=== PATIENT | female | born 1930 | race Caucasian/White ===

== ENCOUNTER 2016-12-01 17:44 | Outpatient (CLI) ==
[2016-12-01 22:08] VITALS: BMI 23.9
== END 2016-12-01 17:45 ==
LOC: AMBL 17:44
PROVIDERS: ATTEND Emergency Medicine
DX: S81.811A Laceration without foreign body, right lower leg, initial encounter (principal); S81.019A Laceration without foreign body, unspecified knee, initial encounter; S90.426A Blister (nonthermal), unspecified lesser toe(s), initial encounter; R53.1 Weakness; W19.XXXA Unspecified fall, initial encounter

== ENCOUNTER 2017-01-10 13:01 | Outpatient (CLI) | payer OTHER ==
[2017-01-10 13:25] LABS: ANION GAP 16.5; BUN/CREATININE RATIO 16.92; CALCIUM 9.4 mg/dL (8.2-10.2); CREATININE 2.6 mg/dL (0.60-1.30); POTASSIUM 4.5 mmol/L (3.5-5.10)
== END 2017-01-10 13:02 | disposition home or self-care (01) ==
LOC: NONPT 13:01
PROVIDERS: ATTEND Family Medicine
DX: I12.9 Hypertensive chronic kidney disease with stage 1 through stage 4 chronic kidney disease, or unspecified chronic kidney disease (principal); N18.9 Chronic kidney disease, unspecified
CPT/HCPCS: 80048

== ENCOUNTER 2017-01-18 18:09 | Outpatient (CLI) | END 2017-01-18 18:10 | LOC: AMBL 18:09 | PROVIDERS: ATTEND Emergency Medicine | DX: S51.812A Laceration without foreign body of left forearm, initial encounter (principal); S91.011A Laceration without foreign body, right ankle, initial encounter; R60.0 Localized edema; G62.9 Polyneuropathy, unspecified; R26.89 Other abnormalities of gait and mobility; W19.XXXA Unspecified fall, initial encounter ==

== ENCOUNTER 2017-01-18 19:33 | Outpatient (CLI) | END 2017-01-18 19:34 | LOC: AMBL 19:33 | PROVIDERS: ATTEND Internal Medicine Geriatric Medicine | DX: R26.9 Unspecified abnormalities of gait and mobility (principal); M79.605 Pain in left leg; R29.6 Repeated falls; W19.XXXA Unspecified fall, initial encounter ==

== ENCOUNTER 2017-01-18 19:48 | Inpatient (IN) ==
[2017-01-18] MEDS ORDERED: MORPHINE 2 MG/ML SYRINGE IM STA (20:15)
[2017-01-18] MEDS ORDERED: ZOFRAN 4 MG/2 ML IM STA (20:15)
--- NOTE | 2017-01-18 20:29 | ED.PDOC ---
General ED Provider: Dr. ROSALINA FLYNN Chief Complaint: Fall Stated Complaint: Patient is an 86 year old female who comes to the ER after having sustained fell this aftenoon while in the closet reaching for dasha rivas. Now unable to put weight on the left with slight rotation. Time Seen by Physician: 20:27 Mode of Arrival: Walk-In Information Source: Patient Exam Limitations: Dementia Primary Care Provider: NEVILLE RIVAS Nursing and Triage Documentation Reviewed and Agree: Yes Review of Systems - Review Of Systems Constitutional: Reports: No symptoms Eyes: Reports: No symptoms Ears, Nose, Mouth, Throat: Reports: No symptoms Respiratory: Reports: No symptoms Cardiac: Reports: No symptoms GI: Reports: No symptoms Musculoskeletal: Reports: Joint pain (Unable to bear weight on the left leg due to pain. 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" does not recall symptoms) Respiratory: Reports: None Hematological: Reports: None Gastrointestinal: Reports: None Genitourinary: Reports: CKD Neuro/Psych: Reports: None Musculoskeletal: Reports: Arthritis, Gout Cancer: Reports: None Last Menstrual Period: POST MENOPAUSAL Other Pertinent Past Medical History: htn kd dvt hyst cce - Surgical History General Surgical History: Reports: Hysterectomy, Cholecystectomy - Family History Family History: Reports: Unknown - Social History Smoking Status: Never smoker Hx Substance Use: No Alcohol Screening: Occasionally - Immunizations Tetanus Shot up to Date: No Physical Exam - Physical Exam Appearance: Ill-appearing Ill-appearing: Mild Pain Distress: Moderate Neck: Supple Respiratory: Airway patent, Breath sounds clear, Breath sounds equal, Respirations nonlabored Cardiovascular: RRR, Pulses normal, No rub, No murmur GI/: Soft, Nontender, No masses, Bowel sounds normal, No Organomegaly Musculoskeletal: Edema (Lower extremities ) Neurological: Oriented (x 2) Psychiatric: Anxious Interpretation - Radiology Interpretation Radiology Interpretation By: Radiologist Radiology Results: Positive Exam Interpreted: CT Scan (pubic ramus fracture minimally displaced) Radiology Interpretation By: ED Physician Radiology Results: Negative Exam Interpreted: Other (Left TIb fib ) Physician Notification - Case Discussed Physician Notified: Dr Avilez Time of Notification: 22:06 (Admit to Dr Rivas. ) Critical Care Note - Critical Care Note Total Time (mins): 0 Course - Course Hematology/Chemistry: 01/18/17 20:52 01/18/17 20:52 Orders, Labs, Meds: Lab Review 01/18/17 20:52 WBC 10.51 H RBC 3.11 L Hgb 9.8 L Hct 30.0 L MCV 96.5 MCH 31.5 H MCHC 32.7 RDW Coeff of Jasmin 13.7 Plt Count 215 Immature Gran % (Auto) 0.4 Neut % (Auto) 77.4 Lymph % (Auto) 13.0 [place] % (Auto) 7.1 Eos % (Auto) 1.4 Baso % (Auto) 0.7 Immature Gran # (Auto) 0.0 Neut # 8.1 H Lymph # 1.4 [place] # 0.8 Eos # 0.2 Baso # 0.1 Sodium 142 Potassium 4.2 Chloride 108 H Carbon Dioxide 24 Anion Gap 14.2 BUN 36 H Creatinine 2.13 H Estimated GFR (MDRD) 22.00 BUN/Creatinine Ratio 16.90 Glucose 140 H Calcium 10.5 H Total Bilirubin 0.57 AST 22 ALT 11 L Alkaline Phosphatase 235 H Total Protein 7.1 Albumin 3.4 Globulin 3.7 Albumin/Globulin Ratio 0.92 Orders Category Date Time Status ADMIT PATIENT INPATIENT .TO [facility] (NON-MONITORED ADMISSION 01/18/17 22: 09 Active BED) ACTIVITY .Early Mobilization for VTE Prevention CARE 01/18/17 22:11 Active CASE MANAGEMENT CONSULT ONCE CARE 01/18/17 22:09 Active INTAKE & OUTPUT Q8HR CARE 01/18/17 22:09 Active VITAL SIGNS Q4HR CARE 01/18/17 22:10 Active REGULAR DIET DIETARY 01/18/17 Breakfast Ordered CBC W/ AUTO DIFF Stat LAB 01/18/17 20:52 Completed COMPREHENSIVE METABOLIC PANEL Stat LAB 01/18/17 20:52 Completed Acetaminophen [Tylenol] MEDS 01/18/17 22:09 Ordered 650 mg PO Q4H PRN Allopurinol [Allopurinol] MEDS 01/19/17 09:00 Ordered 100 mg PO DAILY Bumetanide [Bumex] MEDS 01/19/17 09:00 Ordered 1 mg PO DAILY Carvedilol [Coreg] MEDS 01/19/17 09:00 Ordered 25 mg PO BID Colestipol HCl [Colestid] MEDS 01/19/17 09:00 Ordered 1 gm PO BID Diphenoxylate HCl/Atropine [Lomotil] MEDS 01/18/17 22:14 Ordered 1 tab PO DAILY PRN Diphth,Pertuss(Acell),Tet Vac [Boostrix] MEDS 01/18/17 22:05 Discontinued 0.5 ml IM .ONCE ONE Donepezil HCl [Aricept] MEDS 01/19/17 09:00 Ordered 10 mg PO DAILY Enoxaparin Sodium [Lovenox] MEDS 01/19/17 09:00 Ordered 30 mg SUBCUT DAILY Lisinopril [Lisinopril] MEDS 01/19/17 09:00 Ordered 20 mg PO DAILY Magnesium Oxide [Mag-Ox] MEDS 01/19/17 09:00 Ordered 400 mg PO DAILY Morphine Sulfate [Morphine 2 mg/ml Syringe] MEDS 01/18/17 20:15 Discontinued 2 mg IM ONCE STA Morphine Sulfate [Morphine 2 mg/ml Syringe] MEDS 01/18/17 22:09 Ordered 2 mg IVP Q4H PRN Ondansetron HCl/Pf [Zofran 4 mg/2 ml] MEDS 01/18/17 20:15 Discontinued 4 mg IM ONCE STA Ondansetron HCl/Pf [Zofran 4 mg/2 ml] MEDS 01/18/17 22:09 Ordered 4 mg IVP Q6H PRN Oxycodone-Acetaminophe 7.5-325 [Percocet 7.5-325] MEDS 01/18/17 22:14 Ordered 1 tab PO Q6HR PRN Spironolactone [Aldactone] MEDS 01/19/17 09:00 Ordered 25 mg PO DAILY RESUSCITATION STATUS Routine OTHERS 01/18/17 22:[address] PELVIS W/O CONTRAST Stat RADS 01/18/17 20:15 Completed TIBIA/FIBULA, LEFT 2 VIEWS Stat RADS 01/18/17 20:15 Taken OT CONSULTATION Routine THERAPIES 01/18/17 Ordered PT CONSULT Routine THERAPIES 01/18/17 Ordered Medications Generic Name Dose Route Start Last Admin Trade Name Freq PRN Reason Stop Dose Admin Acetaminophen 650 mg 01/18/17 22:09 Tylenol PO Q4H PRN Fever > 102 Bumetanide 1 mg 01/19/17 09:00 Bumex PO DAILY [facility] Colestipol HCl 1 gm 01/19/17 09:00 Colestid PO BID [facility] Diphenoxylate HCl/Atropine 1 tab 01/18/17 22:14 Lomotil PO DAILY PRN diarrhea Donepezil HCl 10 mg 01/19/17 09:00 Aricept PO DAILY [facility] Enoxaparin Sodium 30 mg 01/19/17 09:00 Lovenox SUBCUT DAILY [facility] Magnesium Oxide 400 mg 01/19/17 09:00 Mag-Ox PO DAILY [facility] Morphine Sulfate 2 mg 01/18/17 22:09 Morphine 2 Mg/Ml Syringe IVP Q4H PRN Severe Pain Non-Formulary Medication 100 mg 01/19/17 09:00 Allopurinol [Allopurinol] PO DAILY [facility] Non-Formulary Medication 25 mg 01/19/17 09:00 Carvedilol [Coreg] PO BID [facility] Non-Formulary Medication 20 mg 01/19/17 09:00 Lisinopril [Lisinopril] PO DAILY [facility] Ondansetron HCl 4 mg 01/18/17 22:09 Zofran 4 Mg/2 Ml IVP Q6H PRN Nausea / Vomiting Oxycodone/Acetaminophen 1 tab 01/18/17 22:14 Percocet 7.5-325 PO Q6HR PRN MODERATE PAIN Spironolactone 25 mg 01/19/17 09:00 Aldactone PO DAILY [facility] Discontinued Medications Generic Name Dose Route Start Last Admin Trade Name Freq PRN Reason Stop Dose Admin Diphtheria/Pertussis/Tetanus Vacc 0.5 ml 01/18/17 22:05 01/18/17 22:38 Boostrix IM 01/18/17 22:06 0.5 ml .ONCE ONE Administration Morphine Sulfate 2 mg 01/18/17 20:15 01/18/17 21:07 Morphine 2 Mg/Ml Syringe IM 01/18/17 20:16 2 mg ONCE STA Administration Ondansetron HCl 4 mg 01/18/17 20:15 01/18/17 21:05 Zofran 4 Mg/2 Ml IM 01/18/17 20:16 4 mg ONCE STA Administration Vital Signs: Temp Pulse Resp BP Pulse Ox 01/18/17 19:50 99.3 F 74 16 112/57 L 99 Departure - Departure Time of Disposition: 22:00 Disposition: ADMITTED INPATIENT Discharge Problem: Pelvic fracture Qualifiers: Encounter type: initial encounter Pelvic bone location: ilium Fracture type: closed Fracture morphology: unspecified fracture morphology Fracture alignment: displaced Laterality: left Qualifier Code: (S32.302A) Unspecified fracture of left ilium, initial encounter for closed fracture Inferior pubic ramus fracture Qualifiers: Encounter type: initial encounter Fracture type: closed Laterality: left Qualifier Code: (S32.592A) Other specified fracture of left pubis, initial encounter for closed fracture Abrasion hip/leg Qualifiers: Encounter type: initial encounter Laterality: left Qualifier Code: (S80.812A) Abrasion, left lower leg, initial encounter Condition: Stable Pt referred to PMD for follow-up: No Allergies/Adverse Reactions: Allergies clonidine Adverse Reaction (Verified 12/01/16 18:08) Penicillins Adverse Reaction (Verified 12/01/16 18:08) Home Medications: Ambulatory Orders Allopurinol 100 mg PO DAILY 07/16/13 Donepezil HCl [Aricept] 10 mg PO DAILY 07/16/13 Lisinopril 20 mg PO DAILY 07/16/13 Spironolactone [Aldactone] 25 mg PO DAILY 07/16/13 Bumetanide 1 mg PO DAILY 07/09/15 Colestipol HCl [Colestid] 1 gm PO BID 07/09/15 Diphenoxylate HCl/Atropine [Lomotil] 1 tab PO DAILY PRN 05/28/16 Magnesium Oxide [Mag-Ox] 400 mg PO DAILY 05/28/16 Carvedilol [Coreg] 25 mg PO BID 12/01/16 Oxycodone HCl/Acetaminophen [Oxycodon-Acetaminophen 7.5-325] 1 tab PO Q6HR PRN 12/01/16
[2017-01-18 20:58] LABS: BASOPHILS # (AUTO) 0.1 K/uL (0-0.2); BASOPHILS % (AUTO) 0.7 % (0.0-3.0); EOSINOPHILS # (AUTO) 0.2 K/ul (0.0-0.7); EOSINOPHILS % (AUTO) 1.4 % (0.0-7.0); HEMOGLOBIN 9.8 g/dl (12.0-16.0); IMMATURE GRANULOCYTE % (AUTO) 0.4 % (0.0-5.0); LYMPHOCYTES # (AUTO) 1.4 K/uL (0.60-3.4); MEAN CORPUSCULAR HEMOGLOBIN 31.5 pg (27.0-31.0); MEAN CORPUSCULAR HGB CONC 32.7 (31.8-35.4); MEAN CORPUSCULAR VOLUME 96.5 fl (81.0-99.0); MONOCYTES # (AUTO) 0.8 K/uL (0.4-2.0); MONOCYTES % (AUTO) 7.1 (0-10); NEUTROPHILS # (AUTO) 8.1 K/ul (2.0-6.9); NEUTROPHILS % (AUTO) 77.4; PLATELET COUNT 215 10^3/uL (140-440); RED BLOOD COUNT 3.11 10^6/ul (4.20-5.40); WHITE BLOOD COUNT 10.51 K/ul (4.6-10.2)
--- NOTE | 2017-01-18 21:11 | CT ---
EXAM: CT of the pelvis without contrast. HISTORY: Fall with left hip pain. PROCEDURE: Contiguous axial CT images of the pelvis without contrast with coronal and sagittal refo rmats. FINDINGS: There is a minimally displaced fracture through the left pubic bone and left inferior pubi c ramus. There is an old healed fracture of the right inferior pubic ramus. There is a nondisplaced vertical fracture through the right side of the sacrum. There is a nondisplaced vertical fracture through the left side of the sacrum. There is an old non-united fracture of the right L5 transverse process. The joint spaces are maintained. There are degenerative changes in the lumbar spine. The bladder is minimally filled. There is minimal air in the bladder. Uterus is surgically absent. There is dive rticulosis of the colon. Impression: Minimally-displaced fracture through the left pubic bone and left inferior pubic ramus. Nondisplaced bilateral sacral fractures as described. Old healed fracture of the right inferior pubic ramus. Old non-united fracture of the right L5 transverse process. Minimal air in the bladder consistent with infection versus recent Thao catheter placement. Diverticulosis of the colon. Hysterectomy.
[2017-01-18 21:15] LABS: ALBUMIN 3.4 g/dL (3.4-5.0); ALBUMIN/GLOBULIN RATIO 0.92; ANION GAP 14.2; BILIRUBIN,TOTAL 0.57 mg/dL (0.00-1.20); BUN/CREATININE RATIO 16.9; CALCIUM 10.5 mg/dL (8.2-10.2); CREATININE 2.13 mg/dL (0.60-1.30); POTASSIUM 4.2 mmol/L (3.5-5.10); TOTAL PROTEIN 7.1 g/dL (5.8-8.1)
[2017-01-18] MEDS ORDERED: BOOSTRIX IM ONE (22:05)
[2017-01-18] MEDS ORDERED: ZOFRAN 4 MG/2 ML IVP PRN (22:09)
[2017-01-18] MEDS ORDERED: MORPHINE 2 MG/ML SYRINGE IVP PRN (22:09)
[2017-01-18] MEDS ORDERED: TYLENOL PO PRN (22:09)
[2017-01-18] MEDS ORDERED: LOMOTIL PO PRN (22:14)
[2017-01-18 23:23] VITALS: BMI 25.0
[2017-01-18] MEDS: PERCOCET 7.5-325 PO PRN (23:48)
--- NOTE | 2017-01-19 07:37 | DI ---
EXAM: Left lower leg. Two-view HISTORY: Injury with contusion and tenderness COMPARISON: None FINDINGS/IMPRESSION: No fracture or dislocation. Tricompartmental osteoarthritis of the knee. Cho ndrocalcinosis medial lateral compartment. Mild osteoarthritis about the ankle. Osteoarthritis abou t the mid foot. Bones appear demineralized. Subcutaneous edema suggested
[2017-01-19] MEDS: ZESTRIL PO SCH (08:24)
[2017-01-19] MEDS: COLESTID PO SCH ×2 (08:24→20:14)
[2017-01-19] MEDS: BUMEX PO SCH (08:24)
[2017-01-19] MEDS: MAG-OX PO SCH (08:25)
[2017-01-19] MEDS: ALDACTONE PO SCH (08:25)
[2017-01-19] MEDS: COREG PO SCH ×2 (08:25→17:57)
[2017-01-19] MEDS: ARICEPT PO SCH (08:25)
[2017-01-19] MEDS: LOVENOX SUBCUT SCH (08:25)
[2017-01-19] MEDS: ZYLOPRIM PO SCH (08:25)
[2017-01-19] MEDS: PERCOCET 7.5-325 PO PRN ×3 (08:27→20:17)
[2017-01-19] MEDS ORDERED: ALLOPURINOL 100 MG PO SCH ×21 (09:00)
[2017-01-19] MEDS ORDERED: NON-FORMULARY MEDICATION (Lisinopril [Lisinopril] 20 MG) PO SCH ×22 (09:00)
[2017-01-19] MEDS ORDERED: NON-FORMULARY MEDICATION (Carvedilol [Coreg] 25 MG) PO SCH ×22 (09:00)
[2017-01-20 01:39] LABS: BILIRUBIN,URINE Negative (NEGATIVE); KETONES,URINE Negative (NEGATIVE); LEUKOCYTE ESTERASE ,URINE 2+ (NEGATIVE); NITRITE,URINE Positive (NEGATIVE); PROTEIN,URINE 1+ (NEGATIVE); URINE, BLOOD 2+ (NEGATIVE)
[2017-01-20 02:16] LABS: ADD URINE MICROSCOPIC YES
[2017-01-20 02:17] LABS: BACTERIA,URINE 4+ (NOT PRESENT)
[2017-01-20] MEDS: PERCOCET 7.5-325 PO PRN ×4 (02:29→21:57)
[2017-01-20 05:18] LABS: BASOPHILS # (AUTO) 0.1 K/uL (0-0.2); BASOPHILS % (AUTO) 0.6 % (0.0-3.0); EOSINOPHILS # (AUTO) 0.2 K/ul (0.0-0.7); EOSINOPHILS % (AUTO) 2.3 % (0.0-7.0); HEMATOCRIT 26.3 % (37.0-47.0); HEMOGLOBIN 8.4 g/dl (12.0-16.0); IMMATURE GRANULOCYTE % (AUTO) 0.2 % (0.0-5.0); LYMPHOCYTES # (AUTO) 1.9 K/uL (0.60-3.4); LYMPHOCYTES % (AUTO) 23.1 (10.0-50.0); MEAN CORPUSCULAR HEMOGLOBIN 31.2 pg (27.0-31.0); MEAN CORPUSCULAR HGB CONC 31.9 (31.8-35.4); MEAN CORPUSCULAR VOLUME 97.8 fl (81.0-99.0); MONOCYTES # (AUTO) 0.7 K/uL (0.4-2.0); MONOCYTES % (AUTO) 8.5 (0-10); NEUTROPHILS # (AUTO) 5.3 K/ul (2.0-6.9); NEUTROPHILS % (AUTO) 65.3; PLATELET COUNT 179 10^3/uL (140-440); RED BLOOD COUNT 2.69 10^6/ul (4.20-5.40); WHITE BLOOD COUNT 8.09 K/ul (4.6-10.2)
[2017-01-20 05:42] LABS: ALBUMIN 2.7 g/dL (3.4-5.0); ALBUMIN/GLOBULIN RATIO 0.79; ANION GAP 13.2; BILIRUBIN,TOTAL 0.5 mg/dL (0.00-1.20); BUN/CREATININE RATIO 18.06; CALCIUM 9.7 mg/dL (8.2-10.2); CREATININE 2.27 mg/dL (0.60-1.30); POTASSIUM 4.2 mmol/L (3.5-5.10); TOTAL PROTEIN 6.1 g/dL (5.8-8.1)
[2017-01-20] MEDS: BUMEX PO SCH (07:59)
[2017-01-20] MEDS: COLESTID PO SCH ×2 (08:00→20:41)
[2017-01-20] MEDS: ZYLOPRIM PO SCH (08:00)
[2017-01-20] MEDS: ALDACTONE PO SCH (08:00)
[2017-01-20] MEDS: ZESTRIL PO SCH (08:00)
[2017-01-20] MEDS: MAG-OX PO SCH (08:00)
[2017-01-20] MEDS: COREG PO SCH ×2 (08:00→17:39)
[2017-01-20] MEDS: LOVENOX SUBCUT SCH (08:00)
[2017-01-20] MEDS: ARICEPT PO SCH (08:00)
--- NOTE | 2017-01-20 14:47 | RS.PTINEVL ---
Subjective - Patient information Date of Evaluation: 01/20/17 Usual Living Arrangement: Alone Home Environment: Apartment ([facility]) Medical History: Hypertension, Dementia Medical History Comments:: Chronic Back Pain Surgical History: Cholecystectomy, Hysterectomy Surgical History Comments:: Appendectomy Subjective Information/ Patient Comments:: Patient states her pain is not too bad while sitting in recliner. Reports increased pain with weight bearing on the left LE. Reports tingling into the left LE since her fall. States she has only fallen once. - Level of function Prior to this admission, the patient could do the following:: Independent Selfcare, Independent ADL's, Independent Ambulation Current Level of Function: Partially Dependent Current Equipment Used at Home: rollator Interventions - Objective Patient Orientation: Person, Place Range of Motion - ROM Right Upper Extremity AROM: WFL's Left Upper Extremity AROM: WFL's Right Lower Extremity AROM: WFL's Left Lower Extremity AROM: Slight limitation Muscle Strength - Muscle Strength Comments:: Bilateral LE strength generally 4/5 throughout. Sensation - Sensation Right Lower Extremity Sensation: Intact/Normal Left Lower Extremity Sensation: Impaired (Reports tingling in left LE) Balance - Sitting Balance and Reactions Static Sitting Balance: Good Dynamic Sitting Balance: Good - Standing Balance and Reactions Static Standing Balance: Fair (+) Dynamic Standing Balance: Fair Functional Mobility - Transfers Sit to Stand: Min Assist, 2 person assist, Verbal Cues, Tactile Cues Stand to Sit: Min Assist, 1 person assist, 2 person assist, Verbal Cues, Tactile Cues Stand Pivot Transfers: Min Assist, 2 person assist, Verbal Cues, Tactile Cues - Safety Awareness Safety Awareness: Poor Ambulation - Ambulation Weight Bearing Status: FWB Assistive Device Used: Rollator Distance: 16-18 feet Assistance needed with Ambulation: Min Assist, 2 person assist, Verbal Cues, Tactile Cues Gait Deviations: Narrow Based gait, Step-to gait, Forward posture, Short stride Factors Affecting Ambulation: Pain Treatment time - Time with patient Total treatment time: 16 Assessment - Assessment Problem List:: Decreased level of function, Requires training/education, Decreased safety/Risk of falls, Pain limits previous level of function Rehab Potential: Good Further Therapy Indicated?: Yes Short Term Goals GOAL #1: Patient performs bed mobility with CGA and min VCs Goal to be met by: 01/23/17 GOAL #2: Sit to/from stand with CGA of 1. Goal to be met by: 01/23/17 GOAL #3: Pt amb. with RW with CGA of 1, 30 feet. Goal to be met by: 01/23/17 Information Security Risk Analyst Goals GOAL #1: Independent with bed mobility. Goal to be met by: 01/27/17 GOAL #2: Transfers independently with safety awareness. Goal to be met by: 01/27/17 GOAL #3: Independent ambulation up to 200' with RW normalized gt pattern Goal to be met by: 01/27/17 Plan Plan of Care: Therapeutic EX, Neuromuscular Re-Educ, Therapeutic Activity, Self- Care/Home Management Frequency of Treatment: 1-2 X day, as tolerated Duration of Treatment: 1 Week Anticipated Discharge Destination: Assisted Living Facility
[2017-01-21 05:15] LABS: BASOPHILS # (AUTO) 0.1 K/uL (0-0.2); BASOPHILS % (AUTO) 0.8 % (0.0-3.0); EOSINOPHILS # (AUTO) 0.3 K/ul (0.0-0.7); HEMATOCRIT 26.5 % (37.0-47.0); HEMOGLOBIN 8.5 g/dl (12.0-16.0); IMMATURE GRANULOCYTE % (AUTO) 0.3 % (0.0-5.0); LYMPHOCYTES # (AUTO) 2.1 K/uL (0.60-3.4); LYMPHOCYTES % (AUTO) 29.1 (10.0-50.0); MEAN CORPUSCULAR HEMOGLOBIN 31.4 pg (27.0-31.0); MEAN CORPUSCULAR HGB CONC 32.1 (31.8-35.4); MEAN CORPUSCULAR VOLUME 97.8 fl (81.0-99.0); MONOCYTES # (AUTO) 0.7 K/uL (0.4-2.0); MONOCYTES % (AUTO) 9.2 (0-10); NEUTROPHILS # (AUTO) 4.1 K/ul (2.0-6.9); NEUTROPHILS % (AUTO) 56.6; PLATELET COUNT 187 10^3/uL (140-440); RED BLOOD COUNT 2.71 10^6/ul (4.20-5.40); WHITE BLOOD COUNT 7.25 K/ul (4.6-10.2)
[2017-01-21 05:38] LABS: ALBUMIN 2.7 g/dL (3.4-5.0); ALBUMIN/GLOBULIN RATIO 0.82; ANION GAP 12.1; BILIRUBIN,TOTAL 0.42 mg/dL (0.00-1.20); BUN/CREATININE RATIO 17.58; CALCIUM 9.6 mg/dL (8.2-10.2); CREATININE 1.99 mg/dL (0.60-1.30); POTASSIUM 4.1 mmol/L (3.5-5.10)
[2017-01-21] MEDS: BUMEX PO SCH (08:36)
[2017-01-21] MEDS: ALDACTONE PO SCH (08:36)
[2017-01-21] MEDS: ZYLOPRIM PO SCH (08:36)
[2017-01-21] MEDS: ZESTRIL PO SCH (08:36)
[2017-01-21] MEDS: MAG-OX PO SCH (08:36)
[2017-01-21] MEDS: COREG PO SCH (08:36)
[2017-01-21] MEDS: ARICEPT PO SCH (08:36)
[2017-01-21] MEDS: PERCOCET 7.5-325 PO PRN (08:36)
[2017-01-21] MEDS: LOVENOX SUBCUT SCH (08:37)
[2017-01-21] MEDS: COLESTID PO SCH (08:37)
[2017-01-21 10:37] VITALS: BP 95/53; TEMP 97.2
--- NOTE | 2017-04-05 14:44 | HP ---
CHIEF COMPLAINT: "She fell and now she can't bear weight." DISCUSSION: This is an 86-year-old lady from assisted living who presented to the Emergency Department after falling at assisted living, reaching for [employer] in the closet. After the fall she was unable to bear weight on the left lower extremity due to pain. Subsequent evaluation by Dr. Martel in the Emergency Department did reveal evidence of left ilium fracture, pubic ramus fracture. Because she was unable to bear weight, we did not feel the patient was going to be able to return back to the assisted living. At this point, the patient was admitted for pain. PAST MEDICAL HISTORY: MEDICATIONS: 1. Allopurinol 2. Aricept 3. Lisinopril 4. Aldactone 5. Bumex 6. Colestid 7. Lomotil 8. Mag-Ox 9. Coreg 10. Oxycodone ALLERGIES: CLONIDINE AND PENICILLN PAST MEDICAL HISTORY: 1. Chronic kidney disease Stage 4 2. Chronic hyperuricacidemia 3. Dementia 4. Hypertension 5. Chronic diarrhea 6. Degenerative joint disease 7. History of gout PAST SURGICAL HISTORY: 1. Hysterectomy 2. Cholecystectomy FAMILY HISTORY: Reviewed and thought not to be pertinent to discussion. SOCIAL HISTORY: No history of smoking or ilicit drug use. She has used alcohol socially. REVIEW OF SYSTEMS: No headaches, visual changes, tinnitus, chest pain, shortness of breath, hemoptysis, abdominal pain, blood in the stool, urinary symptoms or seizures. PHYSICAL EXAMINATION: V/S: Temperature 98.6, pulse 80, respiratory rate 18, BP 120/80. HEENT: Pupils are round. NECK: Supple. CHEST: Clear. CARDIOVASCULAR: Regular rate and rhythm. ABDOMEN: Soft, nontender. EXTREMITIES: Pelvis is stable to rock but very tender. She is unable to bear weight at this time. ASSESSMENT: 1. PELVIC FRACTURE - STABLE. PLAN: 1. Admission 2. Pain control 3. Physical therapy 4. Please see orders MTDD
--- NOTE | 2017-04-05 14:48 | DS ---
PRINCIPAL DIAGNOSIS: 1. STABLE INFERIOR PUBIC RAMUS FRACTURE 2. CHRONIC KIDNEY DISEASE STAGE 4 3. HYPERTENSION DISCUSSION: This is an 86-year-old lady from assisted living who presented to the Emergency Department after falling at assisted living, reaching for [employer] in the closet. After the fall she was unable to bear weight on the left lower extremity due to pain. Subsequent evaluation by Dr. Martel in the Emergency Department did reveal evidence of left ilium fracture, pubic ramus fracture. Because she was unable to bear weight, we did not feel the patient was going to be able to return back to the assisted living. At this point, the patient was admitted for pain. CLINICAL COURSE: The patient was admitted. Pain control was initiated. She was kindly seen by Physical Therapy, please see their notes. Gradually with pain control she was able to ambulate and get up at least, pivot and go to bathroom. At this point, we thought she would benefit from swing bed care in order to continue physical therapy, increase strengthening with transfers. At this point she was admitted to swing bed program with idea of eventually discharging back to assisted living. JESS
== END 2017-01-21 11:21 | disposition swing bed (61) | DRG 536 ==
LOC: ED 19:48 → MEDSURG B 22:25
PROVIDERS: ADMIT Family Medicine; ATTEND Family Medicine
DX: S32.592A Other specified fracture of left pubis, initial encounter for closed fracture (principal); N18.4 Chronic kidney disease, stage 4 (severe); S32.302A Unspecified fracture of left ilium, initial encounter for closed fracture; S80.812A Abrasion, left lower leg, initial encounter; I12.9 Hypertensive chronic kidney disease with stage 1 through stage 4 chronic kidney disease, or unspecified chronic kidney disease; I10 Essential (primary) hypertension; Z86.718 Personal history of other venous thrombosis and embolism; W01.0XXA Fall on same level from slipping, tripping and stumbling without subsequent striking against object, initial encounter; Y92.193 Bedroom in other specified residential institution as the place of occurrence of the external cause; Z79.899 Other long term (current) drug therapy
CPT/HCPCS: 36415; 80053; 81001; 85025; 87086; 87186; 96372; 99284; 99285

== ENCOUNTER 2017-01-21 11:31 | Inpatient (IN) ==
[2017-01-21] MEDS ORDERED: TYLENOL PO PRN (11:50)
[2017-01-21] MEDS ORDERED: MORPHINE 2 MG/ML SYRINGE IVP PRN (11:51)
[2017-01-21] MEDS ORDERED: ZOFRAN 4 MG/2 ML IVP PRN (11:53)
[2017-01-21] MEDS ORDERED: LOMOTIL PO PRN (11:55)
[2017-01-21 12:31] VITALS: BMI 24.9
[2017-01-21] MEDS: LEVAQUIN PO SCH (12:50)
[2017-01-21] MEDS: PERCOCET 7.5-325 PO PRN ×2 (14:58→21:29)
[2017-01-21] MEDS: COREG PO SCH (17:37)
[2017-01-21] MEDS: COLESTID PO SCH (20:13)
[2017-01-21] MEDS ORDERED: NON-FORMULARY MEDICATION (Carvedilol [Coreg] 25 MG) PO SCH ×22 (21:00)
[2017-01-22] MEDS: PERCOCET 7.5-325 PO PRN ×3 (04:08→19:12)
[2017-01-22] MEDS: LEVAQUIN PO SCH (05:32)
[2017-01-22] MEDS: MAG-OX PO SCH (08:03)
[2017-01-22] MEDS: ARICEPT PO SCH (08:03)
[2017-01-22] MEDS: BUMEX PO SCH (08:03)
[2017-01-22] MEDS: ZESTRIL PO SCH (08:03)
[2017-01-22] MEDS: COLESTID PO SCH ×2 (08:03→20:35)
[2017-01-22] MEDS: COREG PO SCH ×2 (08:03→16:51)
[2017-01-22] MEDS: ALDACTONE PO SCH (08:03)
[2017-01-22] MEDS: ZYLOPRIM PO SCH (08:04)
[2017-01-22] MEDS: LOVENOX SUBCUT SCH (08:04)
[2017-01-22] MEDS ORDERED: ALLOPURINOL 100 MG PO SCH ×21 (09:00)
[2017-01-22] MEDS ORDERED: NON-FORMULARY MEDICATION (Lisinopril [Lisinopril] 20 MG) PO SCH ×22 (09:00)
[2017-01-23] MEDS: PERCOCET 7.5-325 PO PRN ×3 (01:10→17:00)
[2017-01-23] MEDS: LEVAQUIN PO SCH (05:46)
[2017-01-23 05:47] LABS: BASOPHILS # (AUTO) 0.1 K/uL (0-0.2); EOSINOPHILS # (AUTO) 0.2 K/ul (0.0-0.7); EOSINOPHILS % (AUTO) 3.2 % (0.0-7.0); HEMATOCRIT 28.1 % (37.0-47.0); IMMATURE GRANULOCYTE % (AUTO) 0.3 % (0.0-5.0); LYMPHOCYTES # (AUTO) 2.1 K/uL (0.60-3.4); LYMPHOCYTES % (AUTO) 29.6 (10.0-50.0); MEAN CORPUSCULAR HEMOGLOBIN 31.1 pg (27.0-31.0); MEAN CORPUSCULAR VOLUME 97.2 fl (81.0-99.0); MONOCYTES # (AUTO) 0.7 K/uL (0.4-2.0); MONOCYTES % (AUTO) 9.5 (0-10); NEUTROPHILS % (AUTO) 56.4; PLATELET COUNT 232 10^3/uL (140-440); RED BLOOD COUNT 2.89 10^6/ul (4.20-5.40); WHITE BLOOD COUNT 7.13 K/ul (4.6-10.2)
[2017-01-23 06:00] LABS: ANION GAP 13.8; BUN/CREATININE RATIO 15.42; CALCIUM 10.1 mg/dL (8.2-10.2); CREATININE 1.88 mg/dL (0.60-1.30); POTASSIUM 3.8 mmol/L (3.5-5.10)
[2017-01-23] MEDS: COLESTID PO SCH ×2 (08:37→21:10)
[2017-01-23] MEDS: COREG PO SCH ×2 (08:37→17:00)
[2017-01-23] MEDS: ALDACTONE PO SCH (08:37)
[2017-01-23] MEDS: ZESTRIL PO SCH (08:37)
[2017-01-23] MEDS: LOVENOX SUBCUT SCH (08:38)
[2017-01-23] MEDS: ARICEPT PO SCH (08:38)
[2017-01-23] MEDS: MAG-OX PO SCH (08:38)
[2017-01-23] MEDS: BUMEX PO SCH (08:38)
[2017-01-23] MEDS: ZYLOPRIM PO SCH (08:38)
[2017-01-24] MEDS: PERCOCET 7.5-325 PO PRN ×4 (01:18→22:10)
[2017-01-24] MEDS: LEVAQUIN PO SCH (05:43)
[2017-01-24] MEDS: COLESTID PO SCH ×2 (08:52→22:10)
[2017-01-24] MEDS: COREG PO SCH ×2 (08:52→17:12)
[2017-01-24] MEDS: ALDACTONE PO SCH (08:52)
[2017-01-24] MEDS: ARICEPT PO SCH (08:52)
[2017-01-24] MEDS: BUMEX PO SCH ×2 (08:52→08:55)
[2017-01-24] MEDS: ZESTRIL PO SCH (08:52)
[2017-01-24] MEDS: ZYLOPRIM PO SCH (08:52)
[2017-01-24] MEDS: MAG-OX PO SCH (08:52)
[2017-01-24] MEDS: LOVENOX SUBCUT SCH (08:53)
--- NOTE | 2017-01-24 10:29 | RS.OTINEVL ---
Subjective - Patient information Date of Evaluation: 01/24/17 Date of Arrival on Unit: 01/21/17 Admitted From:: Home Usual Living Arrangement: Personal Care Facility Living Arrangement Comments: Lives [facility]. Home Environment: Apartment Medical History Comments:: Patient fell and fractured her pelvis. Has a pacemaker,cardiac, eye surgery, arthritis in Left knee, back pain, 89 melanoma , hysterectomy, Surgical History Comments:: gall bladder and appendix removed, hysterectomy, eye surgery Subjective Information/ Patient Comments:: I dress myself mostly. They help me some. I hurt the side that was hurting from my gout. - Level of function Prior to this admission, the patient could do the following:: Independent Selfcare, Independent ADL's, Independent Ambulation Current Equipment Used at Home: ROLLER CART Pain Assessment - Pain Pain Score: 7 Side: left Pain Location Body Site: pelvis Pain Aggravating Factors: ADL's, Changing Position, Exercise/Activity, Standing , Sitting, Walking Pain Alleviating Factors: Medication, Position Change, Lying Supine Interventions - Objective Patient Orientation: Person, Place, Situation Observation: Patient is high level functioning. Patient has pain with movement. Interventions - ROM Right Upper Extremity AROM: WFL's Left Upper Extremity AROM: WFL's - Strength Right Upper Extremity Strength: Mild Weakness Left Upper Extremity Strength: Mild Weakness - Sensation Right Upper Extremity Sensation: Intact/Normal Left Upper Extremity Sensation: Intact/Normal Balance - Sitting Balance Static Sitting Balance: Fair Dynamic Sitting Balance: Fair - Standing Balance Static Standing Balance: Fair Dynamic Standing Balance: Fair - Comments Balance Assessment Comments: Patient uses a rollator walker for functional mobility. ADL Skills - Self Feeding Self Feeding: Independent - Grooming Grooming: Min Assist - Bathing Bathing UE: Min Assist Bathing LE: Min Assist - Dressing Dressing UE: CGA, Min Assist Dressing LE: Min Assist - Toilet Management Toileting Management: Min Assist - Comments Comments:: Patient requires verbal cues for toileting and completing ADLS. Requires reminder for brake on rollator. Functional Mobility - Bed Mobility Rolling R/L: Mod Assist Scooting: Mod Assist Supine to Sit: Mod Assist Sit to Supine: Max Assist - Transfers Sit to Stand: Mod Assist Stand to Sit: Mod Assist Stand Pivot Transfers: Min Assist - Ambulation Weight Bearing Status: WBAT Assistive Device Used: Rollator Assistance needed with Ambulation: CGA - Safety Awareness Safety Awareness: Fair Additional Treatment Performed - Additional units charged ADL: 15 - Time with patient Total treatment time: 26 Activities Patient Interests:: Watching Television Patient Education Patient Education: Education of diagnosis, Home Exercise Program, Education of Plan of Care Teaching Recipient: Patient Teaching Methods: Discussion Assessment Problem List:: Decreased level of function, Requires training/education, Decreased safety/Risk of falls, Weakness, Pain limits previous level of function Rehab Potential: Good Further Therapy Indicated?: Yes Short Term Goals - Goals GOAL 1: Patient to tolerate increase BUE strength to 4/5. Goal to be met by: 01/28/17 GOAL 2: Patient to increase dyn. std. balance to Good for toilet transfers. Goal to be met by: 01/28/17 GOAL 3: Pt to increase independence of functional transfers to CGA. Goal to be met by: 01/28/17 [facility] Goals GOAL 1: Pt to increase BUE strength to 4+/5. Goal to be met by: 02/04/17 GOAL 2: Pt to increase dyn. std. balance to Good+ for sink level ADLS. Goal to be met by: 02/04/17 GOAL 3: Pt to increase independence of functional transfers for ADLS to Mod-I Goal to be met by: 02/04/17
[2017-01-25] MEDS: LEVAQUIN PO SCH (05:31)
[2017-01-25] MEDS: PERCOCET 7.5-325 PO PRN ×3 (06:25→21:54)
[2017-01-25] MEDS: COLESTID PO SCH ×2 (08:15→20:26)
[2017-01-25] MEDS: ARICEPT PO SCH (08:15)
[2017-01-25] MEDS: ALDACTONE PO SCH (08:15)
[2017-01-25] MEDS: ZYLOPRIM PO SCH (08:15)
[2017-01-25] MEDS: MAG-OX PO SCH (08:15)
[2017-01-25] MEDS: LOVENOX SUBCUT SCH (08:16)
[2017-01-25] MEDS: COREG PO SCH ×2 (08:16→16:45)
[2017-01-25] MEDS: ZESTRIL PO SCH (08:16)
[2017-01-25] MEDS: BUMEX PO SCH (08:16)
[2017-01-25] MEDS: ARTIFICIAL TEARS OPTH SOL OP PRN (17:23)
[2017-01-26] MEDS: PERCOCET 7.5-325 PO PRN ×3 (05:20→21:49)
[2017-01-26] MEDS: LEVAQUIN PO SCH (06:07)
[2017-01-26] MEDS: ARTIFICIAL TEARS OPTH SOL OP PRN (08:51)
[2017-01-26] MEDS: COLESTID PO SCH ×2 (08:52→20:16)
[2017-01-26] MEDS: ZESTRIL PO SCH (08:52)
[2017-01-26] MEDS: ALDACTONE PO SCH (08:52)
[2017-01-26] MEDS: LOVENOX SUBCUT SCH (08:53)
[2017-01-26] MEDS: MAG-OX PO SCH (08:53)
[2017-01-26] MEDS: ARICEPT PO SCH (08:53)
[2017-01-26] MEDS: COREG PO SCH ×2 (08:53→16:56)
[2017-01-26] MEDS: ZYLOPRIM PO SCH (08:53)
[2017-01-26] MEDS: BUMEX PO SCH (08:53)
[2017-01-27] MEDS: PERCOCET 7.5-325 PO PRN ×5 (05:13→23:47)
[2017-01-27 05:14] LABS: BASOPHILS # (AUTO) 0.1 K/uL (0-0.2); BASOPHILS % (AUTO) 0.8 % (0.0-3.0); EOSINOPHILS # (AUTO) 0.2 K/ul (0.0-0.7); EOSINOPHILS % (AUTO) 2.8 % (0.0-7.0); HEMATOCRIT 28.6 % (37.0-47.0); IMMATURE GRANULOCYTE % (AUTO) 0.4 % (0.0-5.0); LYMPHOCYTES # (AUTO) 1.9 K/uL (0.60-3.4); LYMPHOCYTES % (AUTO) 24.8 (10.0-50.0); MEAN CORPUSCULAR HEMOGLOBIN 31.1 pg (27.0-31.0); MEAN CORPUSCULAR HGB CONC 31.5 (31.8-35.4); MONOCYTES # (AUTO) 0.7 K/uL (0.4-2.0); MONOCYTES % (AUTO) 9.9 (0-10); NEUTROPHILS # (AUTO) 4.6 K/ul (2.0-6.9); NEUTROPHILS % (AUTO) 61.3; PLATELET COUNT 235 10^3/uL (140-440); RED BLOOD COUNT 2.89 10^6/ul (4.20-5.40); WHITE BLOOD COUNT 7.47 K/ul (4.6-10.2)
[2017-01-27 05:30] LABS: ANION GAP 10.4; BUN/CREATININE RATIO 17.93; CREATININE 2.23 mg/dL (0.60-1.30); POTASSIUM 4.4 mmol/L (3.5-5.10)
[2017-01-27] MEDS: LEVAQUIN PO SCH (05:50)
[2017-01-27] MEDS: ARTIFICIAL TEARS OPTH SOL OP PRN (08:56)
[2017-01-27] MEDS: LOVENOX SUBCUT SCH (08:57)
[2017-01-27] MEDS: ARICEPT PO SCH (08:58)
[2017-01-27] MEDS: COLESTID PO SCH ×2 (08:58→20:27)
[2017-01-27] MEDS: ZYLOPRIM PO SCH (08:59)
[2017-01-27] MEDS: MAG-OX PO SCH (08:59)
[2017-01-27] MEDS: ALDACTONE PO SCH (08:59)
[2017-01-27] MEDS: COREG PO SCH ×2 (08:59→18:00)
[2017-01-27] MEDS: ZESTRIL PO SCH (08:59)
[2017-01-27] MEDS: BUMEX PO SCH (09:00)
[2017-01-28] MEDS: PERCOCET 7.5-325 PO PRN ×3 (02:58→19:58)
[2017-01-28] MEDS: COREG PO SCH ×2 (09:09→17:35)
[2017-01-28] MEDS: ARICEPT PO SCH (09:09)
[2017-01-28] MEDS: BUMEX PO SCH (09:09)
[2017-01-28] MEDS: ALDACTONE PO SCH (09:09)
[2017-01-28] MEDS: LOVENOX SUBCUT SCH (09:09)
[2017-01-28] MEDS: COLESTID PO SCH ×2 (09:09→20:00)
[2017-01-28] MEDS: ZESTRIL PO SCH (09:09)
[2017-01-28] MEDS: MAG-OX PO SCH (09:10)
[2017-01-28] MEDS: ZYLOPRIM PO SCH (09:10)
[2017-01-29] MEDS: PERCOCET 7.5-325 PO PRN ×4 (02:36→23:07)
[2017-01-29] MEDS: COREG PO SCH ×2 (07:47→17:35)
[2017-01-29] MEDS: ALDACTONE PO SCH (08:44)
[2017-01-29] MEDS: ARICEPT PO SCH (08:44)
[2017-01-29] MEDS: MAG-OX PO SCH (08:44)
[2017-01-29] MEDS: COLESTID PO SCH ×2 (08:44→20:23)
[2017-01-29] MEDS: ZYLOPRIM PO SCH (08:44)
[2017-01-29] MEDS: ZESTRIL PO SCH (08:44)
[2017-01-29] MEDS: BUMEX PO SCH (08:44)
[2017-01-29] MEDS: LOVENOX SUBCUT SCH (08:45)
[2017-01-30] MEDS: COREG PO SCH ×2 (08:01→17:22)
[2017-01-30] MEDS: LOVENOX SUBCUT SCH (09:07)
[2017-01-30] MEDS: ZYLOPRIM PO SCH (09:07)
[2017-01-30] MEDS: ZESTRIL PO SCH (09:07)
[2017-01-30] MEDS: MAG-OX PO SCH (09:08)
[2017-01-30] MEDS: BUMEX PO SCH (09:08)
[2017-01-30] MEDS: ARICEPT PO SCH (09:08)
[2017-01-30] MEDS: COLESTID PO SCH ×2 (09:08→20:05)
[2017-01-30] MEDS: ALDACTONE PO SCH (09:08)
[2017-01-30] MEDS: PERCOCET 7.5-325 PO PRN ×3 (09:12→22:02)
[2017-01-31] MEDS: PERCOCET 7.5-325 PO PRN ×3 (04:31→20:26)
[2017-01-31] MEDS: BUMEX PO SCH (08:29)
[2017-01-31] MEDS: ALDACTONE PO SCH (08:29)
[2017-01-31] MEDS: ARICEPT PO SCH (08:29)
[2017-01-31] MEDS: COLESTID PO SCH ×2 (08:30→20:26)
[2017-01-31] MEDS: LOVENOX SUBCUT SCH (08:30)
[2017-01-31] MEDS: COREG PO SCH ×2 (08:30→17:34)
[2017-01-31] MEDS: ZESTRIL PO SCH (08:31)
[2017-01-31] MEDS: MAG-OX PO SCH (08:31)
[2017-01-31] MEDS: ZYLOPRIM PO SCH (08:31)
[2017-02-01] MEDS: PERCOCET 7.5-325 PO PRN ×2 (04:09→09:44)
[2017-02-01 05:39] VITALS: BP 107/37; TEMP 97.5
[2017-02-01] MEDS: BUMEX PO SCH (08:48)
[2017-02-01] MEDS: ALDACTONE PO SCH (08:48)
[2017-02-01] MEDS: ARICEPT PO SCH (08:48)
[2017-02-01] MEDS: LOVENOX SUBCUT SCH (08:49)
[2017-02-01] MEDS: COLESTID PO SCH (08:49)
[2017-02-01] MEDS: COREG PO SCH (08:49)
[2017-02-01] MEDS: MAG-OX PO SCH (08:50)
[2017-02-01] MEDS: ZESTRIL PO SCH (08:50)
[2017-02-01] MEDS: ZYLOPRIM PO SCH (08:50)
--- NOTE | 2017-04-05 14:06 | HP ---
CHIEF COMPLAINT: "She fell and now she can't bear weight." DISCUSSION: This is an 86-year-old lady from assisted living who presented to the Emergency Department after falling at assisted living, reaching for [employer] in the closet. After the fall she was unable to bear weight on the left lower extremity due to pain. Subsequent evaluation by Dr. Martel in the Emergency Department did reveal evidence of left ilium fracture, pubic ramus fracture. Because she was unable to bear weight, we did not feel the patient was going to be able to return back to the assisted living. At this point, the patient was admitted for pain. PAST MEDICAL HISTORY: MEDICATIONS: 1. Allopurinol 2. Aricept 3. Lisinopril 4. Aldactone 5. Bumex 6. Colestid 7. Lomotil 8. Mag-Ox 9. Coreg 10. Oxycodone ALLERGIES: CLONIDINE AND PENICILLN PAST MEDICAL HISTORY: 1. Chronic kidney disease Stage 4 2. Chronic hyperuricacidemia 3. Dementia 4. Hypertension 5. Chronic diarrhea 6. Degenerative joint disease 7. History of gout PAST SURGICAL HISTORY: 1. Hysterectomy 2. Cholecystectomy FAMILY HISTORY: Reviewed and thought not to be pertinent to discussion. SOCIAL HISTORY: No history of smoking or ilicit drug use. She has used alcohol socially. REVIEW OF SYSTEMS: No headaches, visual changes, tinnitus, chest pain, shortness of breath, hemoptysis, abdominal pain, blood in the stool, urinary symptoms or seizures. PHYSICAL EXAMINATION: V/S: Temperature 98.6, pulse 80, respiratory rate 18, BP 120/80. HEENT: Pupils are round. NECK: Supple. CHEST: Clear. CARDIOVASCULAR: Regular rate and rhythm. ABDOMEN: Soft, nontender. EXTREMITIES: Pelvis is stable to rock but very tender. She is unable to bear weight at this time. ASSESSMENT: 1. PELVIC FRACTURE - STABLE. PLAN: 1. Admission 2. Pain control 3. Physical therapy 4. Please see orders MTDD
--- NOTE | 2017-04-05 14:09 | DS ---
PRINCIPAL DIAGNOSIS: 1. STABLE INFERIOR PUBIC RAMUS FRACTURE 2. CHRONIC KIDNEY DISEASE STAGE 4 3. HYPERTENSION DISCUSSION: This is an 86-year-old lady from assisted living who presented to the Emergency Department after falling at assisted living, reaching for [employer] in the closet. After the fall she was unable to bear weight on the left lower extremity due to pain. Subsequent evaluation by Dr. Martel in the Emergency Department did reveal evidence of left ilium fracture, pubic ramus fracture. Because she was unable to bear weight, we did not feel the patient was going to be able to return back to the assisted living. At this point, the patient was admitted for pain. CLINICAL COURSE: The patient was admitted. Pain control was initiated. She was kindly seen by Physical Therapy, please see their notes. Gradually with pain control she was able to ambulate and get up at least, pivot and go to bathroom. At this point, we thought she would benefit from swing bed care in order to continue physical therapy, increase strengthening with transfers. At this point she was admitted to swing bed program with idea of eventually discharging back to assisted living. JESS
--- NOTE | 2017-04-05 14:55 | HP ---
ADMITTED TO SWING BED 01/18/17 CHIEF COMPLAINT: "They said I broke my pelvis." DISCUSSION: 87-year-old lady recently admitted to the hospital in the acute unit after sustaining a pelvic fracture. She fell in her closet at assisted living when trying to reach for [facility]. She was seen in the Emergency Department where she was found to have a stable pelvic fracture; however, she was unable to bear weight and she was subsequently admitted to my services for pain control. She finished her inpatient therapy and she progressed and at this point and she progressed. At this point, we felt we thought she would benefit from swing bed before returning back to assisted living. Therefore she was admitted to our swing bed program. PAST MEDICAL HISTORY: MEDICATIONS: Please see medication reconciliation list. ALLERGIES: PENICILLIN, CLONIDINE PAST MEDICAL HISTORY: 1. Chronic kidney disease Stage 4 2. Hypertension 3. Dementia PAST SURGICAL HISTORY: 1. Hysterectomy 2. Cholecystectomy HABITS: No history of tobacco or illicit drug use. Rare use of alcohol in the past. FAMILY HISTORY: Reviewed and thought not to be pertinent to discussion. REVIEW OF SYSTEMS: No headaches, visual changes, tinnitus, chest pain, shortness of breath, hemoptysis. She has had hip pain. No blood in the stool, urinary symptoms or seizures. PHYSICAL EXAMINATION: V/S: Temperature 97.6, pulse 80, respiratory rate 18, BP 120/80. HEENT: Pupils are round. NECK: Supple. CHEST: Clear. CARDIOVASCULAR: Regular rate and rhythm. ABDOMEN: Soft, nontender. EXTREMITIES: Distal extremities without cyanosis or edema. ASSESSMENT: 1. PELVIC FRACTURE, STABLE. PLAN: 1. We are going to progress with Physical Therapy as well as Occupational Therapy, pain control. Please see orders. MTDD
--- NOTE | 2017-04-06 07:19 | DS ---
DISCHARGE FROM SWING BED 02/01/17 PRINCIPAL DIAGNOSIS: 1. STABLE PELVIC FRACTURE 2. CHRONIC KIDNEY DISEASE 3. HYPERTENSION DISCUSSION: 87-year-old lady recently admitted to the hospital in the acute unit after sustaining a pelvic fracture. She fell in her closet at assisted living when trying to reach for [facility]. She was seen in the Emergency Department where she was found to have a stable pelvic fracture; however, she was unable to bear weight and she was subsequently admitted to my services for pain control. She finished her inpatient therapy and she progressed and at this point and she progressed. At this point, we felt we thought she would benefit from swing bed before returning back to assisted living. Therefore she was admitted to our swing bed program. CLINICAL COURSE: The patient was admitted to our swing bed program. Pain control was excellent for her. She was seen by Physical Therapy and Occupational Therapy. She did progress with their therapies. There were no issues during her stay here. At this point, we felt that she had progressed to the point where she was going to be able to return to assisted living. She will be discharged on medications per reconciliation. She is going to followup with me in one week. Please see orders. MTDD
== END 2017-02-01 11:43 | disposition home or self-care (01) | DRG 536 ==
LOC: MEDSURG B 11:31
PROVIDERS: ADMIT Family Medicine; ATTEND Family Medicine
DX: S32.592A Other specified fracture of left pubis, initial encounter for closed fracture (principal); N18.4 Chronic kidney disease, stage 4 (severe); I12.9 Hypertensive chronic kidney disease with stage 1 through stage 4 chronic kidney disease, or unspecified chronic kidney disease; I10 Essential (primary) hypertension; W01.0XXA Fall on same level from slipping, tripping and stumbling without subsequent striking against object, initial encounter; Y92.092 Bedroom in other non-institutional residence as the place of occurrence of the external cause; Z79.899 Other long term (current) drug therapy
CPT/HCPCS: 36415; 80048; 85025; 97802

== ENCOUNTER 2017-06-16 09:07 | Outpatient (CLI) ==
--- NOTE | 2017-06-16 10:08 | DI ---
EXAM: Two views of the chest. History: Cough. Comparison: Chest radiograph 07/09/2015 Findings: Pacer device. Atherosclerotic vascular calcifications. No focal consolidation. No appre ciable pleural fluid and no pneumothorax. Heart remains mildly enlarged. No acute osseous abnormali ties. Impression: Mild cardiomegaly without acute disease in the chest.
== END 2017-06-16 09:08 | disposition home or self-care (01) ==
LOC: RAD 09:07
PROVIDERS: ATTEND Family Medicine
DX: R05 Cough (principal)

== ENCOUNTER 2018-02-15 17:04 | Emergency (ER) | payer OTHER ==
[2018-02-15 17:11] VITALS: TEMP 98; BMI 26.5
[2018-02-15 17:50] VITALS: BP 131/89
--- NOTE | 2018-02-15 18:31 | ED.PDOC ---
General ED Provider: Dr. AJAY BALLARD Chief Complaint: Nosebleed Stated Complaint: nose bleed Time Seen by Physician: 17:10 Information Source: Patient, EMT Exam Limitations: No limitations Primary Care Provider: NEVILLE RIVAS Nursing and Triage Documentation Reviewed and Agree: Yes Reviewed sepsis parameters & appropriate labs ordered?: No System Inflammatory Response Syndrome: Not Applicable Sepsis Protocol: For patient's 13 years and over: Temp is 96.8 and below OR 101 and greater Pulse >90 BPM Resp >20/minute Acutely Altered Mental Status Are patient's symptoms suggestive of a new infection, such as: -Pneumonia -Skin, Soft Tissue -Endocarditis -UTI -Bone, Joint Infection -Implantable Device -Acute Abdominal Infection -Wound Infection -Meningitis -Blood Stream Catheter Infection -Unknown System Inflammatory Response Syndrome: Not Applicable Review of Systems - Review Of Systems Constitutional: Reports: No symptoms Eyes: Reports: No symptoms Ears, Nose, Mouth, Throat: Reports: Epistaxis Respiratory: Reports: No symptoms Cardiac: Reports: No symptoms GI: Reports: No symptoms : Reports: No symptoms Musculoskeletal: Reports: No symptoms Skin: Reports: No symptoms Neurological: Reports: No symptoms Endocrine: Reports: No symptoms Hematologic/Lymphatic: Reports: No symptoms All Other Systems: Reviewed and Negative Past Medical History - Past Medical History Previously Healthy: Yes Endocrine: Reports: None Cardiovascular: Reports: Hypertension, 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" does not recall symptoms) Respiratory: Reports: None Hematological: Reports: None Gastrointestinal: Reports: None Genitourinary: Reports: CKD Neuro/Psych: Reports: None Musculoskeletal: Reports: Arthritis, Gout Cancer: Reports: None Last Menstrual Period: hysterectomy Other Pertinent Past Medical History: htn kd dvt hyst cce - Surgical History General Surgical History: Reports: Hysterectomy, Cholecystectomy - Family History Family History: Reports: Unknown - Social History Smoking Status: Never smoker Hx Substance Use: No Alcohol Screening: Occasionally Physical Exam - Physical Exam Appearance: Well-appearing, No pain distress, Well-nourished Eyes: ISRA, EOMI, Conjunctiva clear ENT: Epistaxis Respiratory: Airway patent, Breath sounds clear, Breath sounds equal, Respirations nonlabored Cardiovascular: RRR, Pulses normal, No rub, No murmur GI/: Soft, Nontender, No masses, Bowel sounds normal, No Organomegaly Musculoskeletal: Normal strength, ROM intact, No edema, No calf tenderness Skin: Warm, Dry, Normal color Neurological: Sensation intact, Motor intact, Reflexes intact, Cranial nerves intact, Alert, Oriented Psychiatric: Affect appropriate, Mood appropriate Critical Care Note - Critical Care Note Total Time (mins): 0 Course - Course Hematology/Chemistry: 02/15/18 17:24 Orders, Labs, Meds: Lab Review 02/15/18 17:24 WBC 8.41 RBC 3.27 L Hgb 10.8 L Hct 32.7 L MCV 100.0 H MCH 33.0 H MCHC 33.0 RDW Coeff of Jasmin 14.6 Plt Count 155 Immature Gran % (Auto) 0.2 Neut % (Auto) 56.8 Lymph % (Auto) 27.0 [place] % (Auto) 9.3 Eos % (Auto) 5.7 Baso % (Auto) 1.0 Immature Gran # (Auto) 0.0 Neut # (Auto) 4.8 Lymph # (Auto) 2.3 [place] # (Auto) 0.8 Eos # (Auto) 0.5 Baso # (Auto) 0.1 Orders Category Date Time Status CBC W/ AUTO DIFF Stat LAB 02/15/18 17:24 Completed PARTIAL THROMBOPLASTIN TIME Stat LAB 02/15/18 17:24 Received PT WITH INR Stat LAB 02/15/18 17:24 Received Vital Signs: Temp Pulse Resp BP Pulse Ox 02/15/18 17:50 131/89 02/15/18 17:05 98 F 73 20 144/79 H 99 Departure - Departure Time of Disposition: 18:32 Disposition: HOME SELF-CARE Discharge Problem: Epistaxis Instructions: Nosebleed (ED) Condition: Good Pt referred to PMD for follow-up: Yes IPMP verified?: No Additional Instructions: Please call your Family Physician as soon as possible to schedule a follow-up appointment. Allergies/Adverse Reactions: Allergies clonidine Adverse Reaction (Verified 02/15/18 17:15) Penicillins Adverse Reaction (Verified 02/15/18 17:15) Home Medications: Ambulatory Orders Allopurinol 100 mg PO DAILY 07/16/13 Donepezil HCl [Aricept] 10 mg PO DAILY 07/16/13 Lisinopril 20 mg PO DAILY 07/16/13 Bumetanide 1 mg PO DAILY 07/09/15 Colestipol HCl [Colestid] 1 gm PO BID 07/09/15 Diphenoxylate HCl/Atropine [Lomotil] 1 tab PO DAILY PRN 05/28/16 Magnesium Oxide [Mag-Ox] 400 mg PO DAILY 05/28/16 Carvedilol [Coreg] 3.125 mg PO BID 12/01/16 Apixaban [Eliquis] 2.5 mg PO BID 02/15/18 Aspirin [Aspir-Low] 81 mg PO DAILY 02/15/18 Hydrocodone/Acetaminophen [Hydrocodon-Acetaminophen 5-325] 1 each PO DIRECTED PRN 02/15/18
== END 2018-02-15 18:40 | disposition home or self-care (01) ==
LOC: ED 17:04
DX: R04.0 Epistaxis (principal); I10 Essential (primary) hypertension; N18.9 Chronic kidney disease, unspecified; Z86.718 Personal history of other venous thrombosis and embolism; Z79.899 Other long term (current) drug therapy; R00.0 Tachycardia, unspecified
CPT/HCPCS: 36415; 85025; 85610; 85730; 99282

== ENCOUNTER 2018-02-15 21:47 | Emergency (ER) | payer OTHER ==
[2018-02-15 22:05] VITALS: BP 127/85; TEMP 98.8; BMI 23.4
--- NOTE | 2018-02-15 22:58 | ED.PDOC ---
General ED Provider: Dr. SUSANNA VALIENTE Chief Complaint: Nosebleed Stated Complaint: Came for the nose bleed, was here early today, the bleeding stopped so was sent,. she started bleeding again,. recent new medication Eliquis for the Afib. Time Seen by Physician: 22:56 Mode of Arrival: Wheelchair Information Source: Patient, Family Primary Care Provider: NEVILLE RIVAS Nursing and Triage Documentation Reviewed and Agree: Yes Reviewed sepsis parameters & appropriate labs ordered?: Yes System Inflammatory Response Syndrome: Not Applicable Sepsis Protocol: For patient's 13 years and over: Temp is 96.8 and below OR 101 and greater Pulse >90 BPM Resp >20/minute Acutely Altered Mental Status Are patient's symptoms suggestive of a new infection, such as: -Pneumonia -Skin, Soft Tissue -Endocarditis -UTI -Bone, Joint Infection -Implantable Device -Acute Abdominal Infection -Wound Infection -Meningitis -Blood Stream Catheter Infection -Unknown EENT Complaint Exam - Nasal Complaint/Exam Symptoms Are: Still present Timing: Constant Initial Severity: Moderate Current Severity: Moderate Location: Left Character: Heavy bleeding Aggravating: Reports: None Alleviating: Reports: None Associated Signs and Symptoms: Reports: Nasal discharge. Denies: Nasal congestion, Bruising, Hematuria, Hematochezia, Sinus pain, Foreign body, Abnormal coags Related History: Reports: Similar episode (morning), Anticoagulants Nasal Surgical History: Reports: None Bleeding Present At: Left nostril Foreign Body Present: No Oropharynx Findings: Clots, Active bleeding Differential Diagnoses: Epistaxis Review of Systems - Review Of Systems Constitutional: Reports: No symptoms Eyes: Reports: No symptoms Ears, Nose, Mouth, Throat: Reports: Epistaxis Respiratory: Reports: No symptoms Cardiac: Reports: No symptoms GI: Reports: No symptoms : Reports: No symptoms Musculoskeletal: Reports: No symptoms Skin: Reports: No symptoms Neurological: Reports: No symptoms Endocrine: Reports: No symptoms Hematologic/Lymphatic: Reports: No symptoms All Other Systems: Reviewed and Negative Past Medical History - Past Medical History Previously Healthy: Yes Endocrine: Reports: None Cardiovascular: Reports: Hypertension, A-Fib, 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" does not recall symptoms) Respiratory: Reports: None Hematological: Reports: None Gastrointestinal: Reports: None Genitourinary: Reports: CKD Neuro/Psych: Reports: Dementia Musculoskeletal: Reports: Arthritis, Gout Cancer: Reports: None Last Menstrual Period: hyst 38 yrs pritesh Other Pertinent Past Medical History: htn kd dvt hyst cce - Surgical History General Surgical History: Reports: Hysterectomy, Cholecystectomy - Family History Family History: Reports: Unknown - Social History Smoking Status: Never smoker Hx Substance Use: No Alcohol Screening: Occasionally - Immunizations Tetanus Shot up to Date: Yes Physical Exam - Physical Exam Appearance: Ill-appearing, Thin Eyes: ISRA, EOMI, Conjunctiva clear ENT: Ears normal, Nose normal, Oropharynx normal Respiratory: Airway patent, Breath sounds clear, Breath sounds equal, Respirations nonlabored Cardiovascular: RRR, Pulses normal, No rub, No murmur GI/: Soft, Nontender, No masses, Bowel sounds normal, No Organomegaly Musculoskeletal: Normal strength, ROM intact, No edema, No calf tenderness Skin: Warm, Dry, Normal color Neurological: Sensation intact, Motor intact, Reflexes intact, Cranial nerves intact, Alert, Oriented Psychiatric: Affect appropriate, Mood appropriate Procedures - Nasal Packing/Cautery Indications: Present: Anterior epistaxis Packing/Cautery Procedure: Left Suction Used: No Pressure Used to Control Bleeding: Yes Medications Used: Yes: Other (rhinocart) Hemostasis Obtained: Yes Critical Care Note - Critical Care Note Total Time (mins): 30 Course - Course Vital Signs: Temp Pulse Resp BP Pulse Ox 02/15/18 21:57 98.8 F 84 20 127/85 95 Departure - Departure Time of Disposition: 23:00 Disposition: HOME SELF-CARE Discharge Problem: Epistaxis Instructions: Nosebleed (ED) Condition: Stable Pt referred to PMD for follow-up: Yes IPMP verified?: No Additional Instructions: Needs f/u with PMD and [employer] If continues to bleed, come back Allergies/Adverse Reactions: Allergies clonidine Adverse Reaction (Verified 02/15/18 22:05) Penicillins Adverse Reaction (Verified 02/15/18 22:05) Home Medications: Ambulatory Orders Allopurinol 100 mg PO DAILY 07/16/13 Donepezil HCl [Aricept] 10 mg PO DAILY 07/16/13 Lisinopril 20 mg PO DAILY 07/16/13 Bumetanide 1 mg PO DAILY 07/09/15 Colestipol HCl [Colestid] 1 gm PO BID 07/09/15 Diphenoxylate HCl/Atropine [Lomotil] 1 tab PO DAILY PRN 05/28/16 Magnesium Oxide [Mag-Ox] 400 mg PO DAILY 05/28/16 Carvedilol [Coreg] 3.125 mg PO BID 12/01/16 Apixaban [Eliquis] 2.5 mg PO BID 02/15/18 Aspirin [Aspir-Low] 81 mg PO DAILY 02/15/18 Hydrocodone/Acetaminophen [Hydrocodon-Acetaminophen 5-325] 1 each PO DIRECTED PRN 02/15/18 Disposition Discussed With: Patient, Family
== END 2018-02-15 23:35 | disposition home or self-care (01) ==
LOC: ED 21:47
DX: R04.0 Epistaxis (principal); Z79.01 Long term (current) use of anticoagulants
CPT/HCPCS: 99282